=== PATIENT | female | born 1945 | race Caucasian/White ===

== ENCOUNTER → 2018-08-09 | Outpatient (CLI) | payer OTHER, MEDICARE | LOC: SUPIMAGING 10:17 | PROVIDERS: ATTEND Family Medicine | DX: M25.532 Pain in left wrist (principal); S52.502A Unspecified fracture of the lower end of left radius, initial encounter for closed fracture; S52.615A Nondisplaced fracture of left ulna styloid process, initial encounter for closed fracture | CPT/HCPCS: 73110-PN ==